=== PATIENT | male | born 1975 | race Caucasian/White ===

== ENCOUNTER 2020-09-13 14:14 | Emergency (ER) | payer OTHER, SELFPAY ==
[2020-09-13 14:19] VITALS: BP 120/83; PULSE 93; TEMP 36.5; O2SAT 98
--- NOTE | 2020-09-13 14:33 | ED.GENADUL_ITS ---
Discharge Plan Disposition Patient Disposition: HOME Condition: Stable Discharge Details Clinical Impression: Abscess Primary Care Provider: Stephanie,Local ED Provider: Ricky Underwood Home Meds and New Rx's Prescriptions: New mupirocin 2 % ointment 1 applic topical BID Qty: 15 RF: 0 Discharge Instructions Instructions: Abscess (ED) Additional Instructions: Perform chlorine soaks as we discussed. Apply topical antibiotic ointment as prescribed. Please contact your primary care physician to arrange follow-up. Return to the ER for any worsening or new concerning symptoms. Discharge Data Discharge Date/Time-TO BE ENTERED AT DEPARTURE: 09/13/20 15:01 Medical Decision Making 45-year-old male with prior history of remote MRSA, here with small local abscess with no cellulitis or systemic symptoms. Skin was anesthetized with LET. Small incision made into cholesterol and purulent fluid expressed. Usual and customary discharge instructions were reviewed with the patient. HPI General Mode of arrival: ambulatory . Date/Time Provider Initiated Documentation: 09/13/20 14:20 . Limitations to Documentation: no limitations . Information obtained by: patient . HPI Narrative: 45-year-old male with prior history of MRSA skin infection remotely, presents with concern for skin i nfection. Patient notes that a few days of a boil developing left anterior lower leg. Patient states it has developed a head. No discharge from the infection. No associated fever. Otherwise feels well. No other rash. Related Data Home Medications Medication Instructions Recorded Confirmed mupirocin 1 applic TOPICAL BID #15 g 09/13/20 Previous Rx's Medication Instructions Recorded mupirocin 1 applic TOPICAL BID #15 g 09/13/20 Allergies Allergy/AdvReac Type Severity Reaction Status Date / Time Penicillins AdvReac Unverified 09/13/20 14:25 General Stated Complaint: Cellulitis VITALIY: 4 Review of Systems Constitutional Constitutional: Denies fever(s) Integumentary/Breasts Skin/Breast: Reports as per HPI [facility] Medical History (Updated 09/13/20 @ 14:39 by Ricky Underwood MD) MRSA (methicillin resistant Staphylococcus aureus) Social History Smoking/Tobacco Use Status: Current-Occasional Smoking risk assessment performed?: Yes Alcohol Intake: never Drug use: Never Substance use type: does not use Do you feel safe at home: Yes Do you feel safe in your relationship?: Yes Exam Const General: cooperative and no acute distress HENMT Mouth: moist mucous membranes Eyes Conjunctivae: normal conjunctivae Sclera: normal sclerae Neck Neck: trachea midline and supple Resp Auscultation: clear to auscultation bilaterally, no rales, no rhonchi and no whe ezes Cardio Rate: regular rate and not tachycardic Rhythm: regular rhythm Skin Other: 2cm circular abscess with pustule left anterior lower leg Neuro General: patient alert, patient awake and tone normal Course Vital Signs Vital signs: Vital Signs Temperature 36.5 C 09/13/20 14:19 Pulse 93 H 09/13/20 14:19 Blood Pressure 120/83 09/13/20 14:19 Pulse Oximetry 98 09/13/20 14:19 Temperature 36.5 C 09/13/20 14:19 Temperature Source Oral 09/13/20 14:19 Pulse 93 H 09/13/20 14:19 Respiratory Effort 09/13/20 14:25 Blood Pressure 120/83 09/13/20 14:19 Blood Pressure Position Sitting 09/13/20 14:19 Pulse Oximetry 98 09/13/20 14:19 Oxygen Delivery Method Room Air 09/13/20 14:19 Oxygen Flow Rate 0 09/13/20 14:19 Pain Level 5 09/13/20 14:19 Procedures Abscess I/D Site: Lower Extremity Side (if applicable): Left Local Anesthetic: Other Anesthetic (topical LET) Technique: Incised with #11 Blade Amount of fluid expressed (mL): 0.5 Irrigation: Yes Packing used?: None
[2020-09-13] MEDS: Lidocaine/Epinephri/Tetracaine Topical Gel 3 ML TP (14:37)
[2020-09-13 15:00] VITALS: BP 120/83; PULSE 93; TEMP 36.5; O2SAT 98
== END 2020-09-13 15:01 | disposition home or self-care (01) ==
LOC: ER 15:05
PROVIDERS: Emergency Provider Student in an Organized Health Care Education/Training Program
DX: L02.416 Cutaneous abscess of left lower limb (principal)
CPT/HCPCS: 10060

== ENCOUNTER 2021-06-17 18:38 | Emergency (ER) | payer OTHER, SELFPAY ==
[2021-06-17 18:46] VITALS: BP 150/97; PULSE 78; TEMP 37.4; O2SAT 98
--- NOTE | 2021-06-17 18:56 | DI.CT_ITS ---
Exam(s) CT HEAD FACIAL WO EXAM: CT HEAD FACIAL WO CLINICAL HISTORY: Blunt trauma head Right orbit. TECHNIQUE: Imaging Protocol: Axial computed tomography images with coronal and sagittal reformatted images were created and reviewed COMPARISON: No exams were available for comparison FINDINGS: CT Head: Ventricles and Extra axial spaces: Normal in size and morphology for the patient's age. Hemorrhage: None. Cerebral parenchyma: Normal. Midline shift: None. Brainstem/Cerebellum: Normal. Calvarium: Normal. Visualized Paranasal sinuses/Mastoids: Clear. Soft Tissues: Unremarkable. CT Face: Facial Bones: No definite fracture is noted in facial bones. Sinuses and Mastoids: Unremarkable. Globes, extraocular muscles, optic nerves and retrobulbar fat: Normal. Upper aerodigestive tract: Normal. Mandible and bilateral temporomandibular joints: Normal. Soft tissues: Mild soft tissue swelling right infraorbital region. IMPRESSION: 1. No acute intracranial process. 2. No acute facial fracture. RADIATION DOSE DELIVERED: 1,681.49mGy.cm Total DLP DATA REPOSITORY: All CT scans at this facility are submitted to the National Radiology Data Registry (NRDR) Dose Index Registry (DIR) with the [employer] (ACR). RADIATION OPTIMIZATION: All CT scans at this facility use at least one of these dose optimization te chniques: automated exposure control; mA and/or kV adjustment per patient size (includes targeted exa ms where dose is matched to clinical indication); or iterative reconstruction.
--- NOTE | 2021-06-17 18:59 | ED.GENADUL_ITS ---
Discharge Plan Disposition Patient Disposition: HOME Condition: Stable Discharge Details Clinical Impression: Abrasion of cornea, right, Blunt force trauma, right eye Primary Care Provider: Stephanie,Local ED Provider: Jessi Blake Home Meds and New Rx's Prescriptions: No Action mupirocin 2 % ointment 1 applic topical BID Qty: 15 RF: 0 Discharge Instructions Instructions: Corneal Abrasion (ED), Head Injury (ED) Additional Instructions: Use erythromycin ointment up to 3 times daily to right eye for 3 to 5 days. Follow-up with [facility] in 3 to 5 days for further evaluation. Please take Tylenol or Ibuprofen with food every 4-6 hours as needed for pain and swelling. [facility] Address: [address] [place] [address], [place] [address] Hours: Opens 8AM Fri Follow up with primary care provider in 3-5 days. Return to ED sooner if any worsening or concerns. Increase oral fluids. Be seen sooner for any vomiting, confusion, headache not relieved by ibuprofen or Tylenol or any concerns. Referrals: [facility] [OTHER] - Medical Decision Making 46-year-old male presents to the ER chief complaint of right eye pain. 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 Patient denies loss of consciousness but became nauseous and thought he was going to pass out. He is complaining of eye pain he has a small abrasion noted to his right cheek and some contusion and swelling surrounding it. Patient states that he took an Aleve and drank a twisted tea prior to arrival. He denies any C-spine tenderness or neck pain. He is unsure of his last tetanus vaccination status. 190: Visual acuity 20/50 right eye, FINDINGS: Orbital cavity: Orbits are normal. Globes are unremarkable. Bones/joints: No acute fracture. Paranasal sinuses: Normal. No air-fluid levels. Soft tissues: Mild swelling and stranding of the right infraorbital facial facial soft tissues COMPARISON: No relevant prior studies available. FINDINGS: Brain: Normal. No hemorrhage. Unremarkable white matter. No mass effect. Cerebral ventricles: No ventriculomegaly. Paranasal sinuses: Visualized sinuses are unremarkable. No fluid levels. Mastoid air cells: Visualized mastoid air cells are well aerated. Bones/joints: Unremarkable. No acute fracture. Soft tissues: Mild swelling and stranding of the right infraorbital facial facial soft tissues. IMPRESSION: 1. No evidence of acute intracranial abnormality. 2. Mild swelling and stranding of the right infraorbital facial facial soft tissues. Eye exam performed with Lennon lamp and fluorescein see physical exam above, no foreign body visualized, there was uptake of dye noted to the inner canthus. Small multiple subconjunctival hemorrhages noted. Patient was given erythromycin ointment here in department and sent home with instructions on use. Instructed to follow-up with blending line attendant. Patient verbalized understanding. Discussed return instructions. This text was generated using rumr: turn off the lights dictation system, please disregard any oddities of phrase or misspellings. HPI General Mode of arrival: ambulatory . Date/Time Provider Initiated Documentation: 06/17/21 18:49 . Limitations to Documentation: no limitations . Information obtained by: patient and RN notes reviewed . HPI Narrative: 46-year-old male presents to the ER chief complaint of right eye pain. 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 Patient denies loss of consciousness but became nauseous and thought he was going to pass out. He is complaining of eye pain he has a small abrasion noted to his right cheek and some contusion and swelling surrounding it. Patient states that he took an Aleve and drank a twisted tea prior to arrival. He denies any C-spine tenderness or neck pain. He is unsure of his last tetanus vaccination status. Related Data Home Medications Medication Instructions Recorded Confirmed mupirocin 1 applic TOPICAL BID #15 g 09/13/20 Previous Rx's Medication Instructions Recorded mupirocin 1 applic TOPICAL BID #15 g 09/13/20 Allergies Allergy/AdvReac Type Severity Reaction Status Date / Time Penicillins AdvReac Unverified 09/13/20 14:25 General Stated Complaint: HeadInjury VITALIY: 2 Review of Systems All systems reviewed & are unremarkable except as noted in HPI and below Eyes Eyes: Reports as per HPI, Reports blurry vision, Reports change in vision, Reports irritation, Reports eye pain and Reports spots in vision Musculoskeletal Musculoskeletal: Reports as per HPI [facility] Medical History (Updated 06/17/21 @ 20:45 by Jessi Blake) MRSA (methicillin resistant Staphylococcus aureus) Social History Smoking/Tobacco Use Status: Current-Occasional Smoking risk assessment performed?: Yes Alcohol Intake: never Drug use: Never Substance use type: does not use Do you feel safe at home: Yes Do you feel safe in your relationship?: Yes Exam Narrative Exam Narrative: Constitutional: Alert and oriented x3. Appears stated age. Normal body habitus. Patient appears anxious. Head: Normocephalic, no trauma. Eyes: Pupils PERRLA, Red reflex noted, EOM's intact. See eye exam noted below. ENT: Bilateral TM's WNL, External ear normal to inspection, no hemotympanum no mastoid TTP, swelling, or erythema, Nasal turbinates WNL, no evidence of epistaxis no septal hematoma no nasal discharge. Normal dentition, Posterior pharynx WNL, no exudate. Chest: RRR, Normal S1, S2, distal pulses intact. Resp: Lungs clear to auscultation bilaterally, no wheezes, rales, or rhonchi. Musculoskeletal: Normal gait, 5/5 strength to all four extremities. Skin: Capillary refill less than 2 sec. Neurologic: Cranial nerves II-XII intact. Alert and oriented x 3. DTR's intact. Hematologic/Lymphatic: No ecchymosis, no lymphadenopathy. Eyes Visual Mendoza: normal visual mendoza by confrontation Periorbital: periorbital findings abnormal right periorbital swelling, periorbital tenderness and other (Abrasion Lower lid) Conjunctivae: conjunctival abnormality right subconjunctival hemorrhage Cornea: corneas abnormal on the right fluorescein used and abrasion linear and at the following clock position (3 Oclock); without dendrites present, with no foreign body noted and without ulcerations Pupils: PERRL EOM: EOM intact bilaterally Direct ophthalmoscopy: normal light reflex Eyes/upper lids images: 1. Corneal abrasion. Fluorescein dye uptake 2. Subconjunctival hemorrhage 3. Superficial abrasion, Surrounding contusion Course Vital Signs Vital signs: Vital Signs Temperature 37.4 C 06/17/21 18:46 Pulse 78 06/17/21 18:46 Blood Pressure 150/97 H 06/17/21 18:46 Pulse Oximetry 98 06/17/21 18:46 Temperature 37.4 C 06/17/21 18:46 Temperature Source Temporal Artery Scan 06/17/21 18:46 Pulse 78 06/17/21 18:46 Blood Pressure 150/97 H 06/17/21 18:46 Blood Pressure Position Sitting 06/17/21 18:46 Pulse Oximetry 98 06/17/21 18:46 Oxygen Delivery Method Room Air 06/17/21 18:46 Oxygen Flow Rate 0 06/17/21 18:46 Pain Level 7 06/17/21 18:46
[2021-06-17] MEDS: Balanced Salt Solution 15 ML BTL OP (19:20)
--- NOTE | 2021-06-17 20:28 | DI.VRAD_ITS ---
PROCEDURE INFORMATION: Exam: CT Head Without Contrast Exam date and time: 06/17/2021 7:27 PM Age: 46 years old Clinical indication: Other: Blunt trauma head right orbit; Other: Blunt trauma head right orbit TECHNIQUE: Imaging protocol: Computed tomography of the head without contrast. Radiation optimization: All CT scans at this facility use at least one of these dose optimization techniques: automated exposure control; mA and/or kV adjustment per patient size (includes targeted exams where dose is matched to clinical indication); or iterative reconstruction. COMPARISON: No relevant prior studies available. FINDINGS: Brain: Normal. No hemorrhage. Unremarkable white matter. No mass effect. Cerebral ventricles: No ventriculomegaly. Paranasal sinuses: Visualized sinuses are unremarkable. No fluid levels. Mastoid air cells: Visualized mastoid air cells are well aerated. Bones/joints: Unremarkable. No acute fracture. Soft tissues: Mild swelling and stranding of the right infraorbital facial facial soft tissues. IMPRESSION: 1. No evidence of acute intracranial abnormality. 2. Mild swelling and stranding of the right infraorbital facial facial soft tissues. PROCEDURE INFORMATION: Exam: CT Maxillofacial Without Contrast Exam date and time: 06/17/2021 7:27 PM Age: 46 years old Clinical indication: Other: Blunt trauma head right orbit; Other: Blunt trauma head right orbit TECHNIQUE: Imaging protocol: Computed tomography images of the face without contrast. Radiation optimization: All CT scans at this facility use at least one of these dose optimization techniques: automated exposure control; mA and/or kV adjustment per patient size (includes targeted exams where dose is matched to clinical indication); or iterative reconstruction. COMPARISON: No relevant prior studies available. FINDINGS: Orbital cavity: Orbits are normal. Globes are unremarkable. Bones/joints: No acute fracture. Paranasal sinuses: Normal. No air-fluid levels. Soft tissues: Mild swelling and stranding of the right infraorbital facial facial soft tissues. IMPRESSION: 1. No evidence of acute osseous injury. 2. Mild swelling and stranding of the right infraorbital facial facial soft tissues. Dictated and Authenticated by: Naun Diallo MD. Ordering:LIZETH Bowen MD
[2021-06-17] MEDS: Erythromycin Ophth Oint 3.5 GM TUBE OD (20:52)
== END 2021-06-17 20:48 | disposition home or self-care (01) ==
PROVIDERS: Emergency Provider Registered Nurse Emergency
DX: S05.01XA Injury of conjunctiva and corneal abrasion without foreign body, right eye, initial encounter (principal); S00.81XA Abrasion of other part of head, initial encounter; W20.8XXA Other cause of strike by thrown, projected or falling object, initial encounter; H11.31 Conjunctival hemorrhage, right eye
CPT/HCPCS: 90471; 99284; 70450; 70486

== ENCOUNTER 2025-02-14 13:59 | Outpatient (REF) | payer OTHER, SELFPAY ==
[2025-02-15 11:54] LABS: Campylobacter PCR Negative (Negative); Salmonella PCR Negative (Negative); Shiga Toxin PCR Negative (Negative); Shigella/Enteroinvasive Ecoli Negative (Negative)
== END 2025-02-14 14:00 | disposition home or self-care (01) ==
LOC: LBN 13:59
PROVIDERS: Visit Provider Physician Assistant Medical
DX: R19.5 Other fecal abnormalities (principal)
CPT/HCPCS: 87505; 87177

== ENCOUNTER 2025-03-05 17:11 | Outpatient (REF) | payer OTHER, SELFPAY ==
[2025-03-05 20:14] LABS: Abs Immature Grans 0.01 10^3/uL (0.0-0.06); Absolute Basophil Count 0.03 10^3/uL (0.0-0.2); Absolute Eosinophil Count 0.01 10^3/uL (0.0-0.7); Absolute Lymphocyte Count 1.58 10^3/uL (1.2-3.4); Absolute Neutrophil Count 3.49 10^3/uL (1.2-6.7); Basophils % 0.6 %; Eosinophils % 0.2 %; HCT 40.2 % (40.0-50.0); HGB 13.9 g/dL (13.5-17.5); Immature Grans % 0.2 %; Lymphocytes % 29.2 %; MCH 30.5 pg (27.0-33.0); MCHC 34.6 % (32.0-36.0); MCV 88 fL (80-95); MPV 12.5 fL (8.0-11.0); Monocytes % 5.5 %; Neutrophils % 64.3 %; Platelet Count 183 10^3/uL (130-400); RBC 4.55 10^6/uL (4.36-5.78); RDW 13.4 % (11.8-14.1); RDW-SD 42.6 fL; WBC 5.42 10^3/uL (4.4-10.8)
[2025-03-05 20:51] LABS: ALT 35 U/L (16-63); AST 26 U/L (15-37); Albumin 4.1 g/dL (3.4-5.0); Alkaline Phosphatase 53 U/L (46-116); Anion Gap 11.7 mmol/L (3-11); BUN 11 mg/dL (7-18); Bilirubin, Total 1.2 mg/dL (0.2-1.0); CO2 24.3 mmol/L (21.0-32.0); Calcium 8.8 mg/dL (8.5-10.1); Calculated LDL 94 mg/dL (<100); Chloride 109 mmol/L (98-107); Cholesterol 182 mg/dL (<200); Estimated GFR 92.84 (mL/min/1.73m2); Glucose 101 mg/dL (74-106); HDL Cholesterol 69 mg/dL (>or=40); Sodium 145 mmol/L (136-145); TSH 0.63 uIU/mL (0.36-3.74); Triglyceride 97 mg/dL (<150)
[2025-03-05 22:20] LABS: Hemoglobin A1C 5.3 % (<5.7)
== END 2025-03-05 17:12 | disposition home or self-care (01) ==
LOC: NCHCN 17:11
PROVIDERS: Visit Provider Family Medicine
DX: Z00.00 Encounter for general adult medical examination without abnormal findings (principal)
CPT/HCPCS: 80053; 80061; 83036; 84443; 85025

== ENCOUNTER 2025-03-13 20:05 | Outpatient (REF) | payer MEDICARE, SELFPAY ==
[2025-03-17 12:51] LABS: Chlamydia Result Negative (Negative)
[2025-03-17 12:57] LABS: Specimen Description URINE
[2025-03-17 13:01] LABS: GC Result Positive (Negative)
== END 2025-03-13 20:06 | disposition home or self-care (01) ==
LOC: NCHCN 20:05
PROVIDERS: Visit Provider Family Medicine
DX: R36.9 Urethral discharge, unspecified (principal)
CPT/HCPCS: 87491; 87591

== ENCOUNTER 2025-03-20 16:37 | Outpatient (REF) | payer MEDICARE, SELFPAY | END 2025-03-20 16:38 | disposition home or self-care (01) | LOC: NCHCN 16:37 | PROVIDERS: Visit Provider Family Medicine | DX: A06.3 Ameboma of intestine (principal) | CPT/HCPCS: 87177; 87209 ==

== ENCOUNTER 2025-04-01 16:48 | Outpatient (REF) | payer MEDICARE, SELFPAY ==
[2025-04-06 16:10] LABS: Entamoeba histolytica Antigen NOT DETECTED
== END 2025-04-01 16:49 | disposition home or self-care (01) ==
LOC: NCHCN 16:48
PROVIDERS: Visit Provider Family Medicine
DX: A06.9 Amebiasis, unspecified (principal)
CPT/HCPCS: 87339

== ENCOUNTER 2025-04-10 01:14 | Outpatient (CLI) | payer MEDICARE, SELFPAY ==
--- NOTE | 2025-04-10 | DI.US_ITS ---
Exam(s) US SCROTUM EXAM: US SCROTUM CLINICAL HISTORY: SCROTAL PAIN N50.82 PENILE INJURY LAST WEEK, BRUISING. TECHNIQUE: Scrotal ultrasound performed using grayscale, color-flow and spectral Doppler analysis. COMPARISON: No exams were available for comparison FINDINGS: Right testicle: 5.5 x 3.0 x 3.7 cm Echogenicity: Normal. Contour: Smooth. Mass: None seen. Microlithiasis: None. Hydrocele: None. Variocele: None. Hernia: No peristalsing bowel loop identified. Epididymis: There is a small 0.2 cm epididymal head cyst. Left testicle: 5.7 x 2.6 x 3.9 cm Echogenicity: Normal. Contour: Smooth. Mass: None seen. Microlithiasis: None. Hydrocele: None. Variocele: None. Hernia: No peristalsing bowel loop identified. Epididymis: Normal. DOPPLER: Color: Symmetric and uniform, no hyperemia. Other: There is an area of subcutaneous edema at the left side near the junction of the scrotum and t he base of the penis. There are 2 heterogeneous and hypoechoic areas within the edema measuring 4 cm by 1.4 cm in aggregate. They appear separate from the penile shaft. They are separate from the felicitas ticles. This area probably reflects an area of hematoma. IMPRESSION: 1. Normal appearing bilateral testicles. 2. Heterogeneous hypoechoic area corresponding to the palpable abnormality. This may represent an ar ea of hematoma. A follow-up examination in 2-4 weeks is suggested for re-evaluation. DATA REPOSITORY:
== END 2025-04-10 01:34 ==
PROVIDERS: PCP Family Medicine; Visit Provider Family Medicine
DX: N50.82 Scrotal pain (principal)
CPT/HCPCS: 76870

== ENCOUNTER → 2025-05-01 08:43 | Outpatient (BNVA) | payer MEDICARE, SELFPAY | PROVIDERS: PCP Family Medicine; Visit Provider Surgery | DX: Z12.11 Encounter for screening for malignant neoplasm of colon (principal); Z80.0 Family history of malignant neoplasm of digestive organs | CPT/HCPCS: S0285 ==

== ENCOUNTER 2025-05-16 10:37 | Day surgery (SDC) | payer OTHER, SELFPAY ==
--- NOTE | 2025-05-15 19:39 | W.PM.DSUDISC ---
Date of service: 05/16/25 Discharge Plan Disposition Patient Disposition: Home Condition: Good Discharge Details Reason For Visit: screening colonoscopy Attending Provider: Westley Michael Primary Care Provider: Antony Mclean Home Meds and New Rx's Prescriptions: Continued emtricitabine-tenofovir (TDF) 200-300 mg tablet 1 tab PO DAILY Patient Comments: TAKE 1 TABLET BY MOUTH EVERY DAY 05/14/25 Pt. states he takes this a preventative, but is currently not taking it at this time, has an RX on file. Has not tested HIV + mupirocin 2 % ointment 1 applic topical BID Qty: 15 0RF Rx Instructions: Apply to infection Discontinued polyethylene glycol 3350 17 gram/dose powder 238 g PO ONCE Qty: 238 0RF Rx Instructions: take per colonoscopy instructions bisacodyl [Dulcolax (bisacodyl)] 5 mg tablet,delayed release (DR/EC) 5 mg PO ONCE Qty: 4 0RF Rx Instructions: take per colonoscopy instructions Discharge Instructions Additional Instructions: Elizabeth, it was good seeing you today, and am glad that you are comfortable through the procedure. As you saw, aside from 1 little area of inflammation, everything else is totally normal. With no signs of cancers or polyps, this would be considered a negative screening colonoscopy. Typically, I recommend that patients who have 1 or more first-degree relatives (father mother, sister brother, children) who have colon cancer undergo colonoscopies every 5 years. For patients with second-degree relatives, I usually recommend 5-year intervals if there are 2 or more second-degree relatives. I would encourage you to keep an open dialogue with your primary care physician. Certainly, would be happy to see you again for your next screening colonoscopy. If you need anything, or have any questions at all, please do not hesitate to ask. 1. If tolerated, consume a soft, low fiber diet for 1-2 days. 2[address] Do not drive, drink alcohol, operate machinery, make critical decisions, or do activities that require coordination or balance for 24 hours. 3. Because air was put into your colon during the procedure, expelling air from your rectum (passing gas or farting) is normal. 4. You may not have a bowel movement for 1-3 days because of the colonoscopy prep. This is normal. 5. Go directly to the emergency room if you notice any of the following: Develop chills (warm to touch), or if you have a thermometer and your temperature is above 101 Difficulty breathing or difficultly swallowing Persistent vomiting Severe abdominal pain, other than gas cramps Severe chest pain Black, tarry stools Any bleeding ? exceeding one tablespoon 6. Call your physician if the site where your intravenous was started becomes red, swollen, painful, and warm to touch. 7. Your physician has reviewed your pre-procedure medications. Please continue to take those medications as previously ordered. You will be given specific information/education regarding any changes to your medications before leaving. Activity:: Activity as Tolerated Diet:: As Tolerated Discharge Orders Discharge Orders: Discharge Order (Routine); Ordered 05/15/25 Ordered By: Westley Michael DS: Diagnosis Discharge Diagnosis (1) Encounter for screening colonoscopy: Status: Acute
--- NOTE | 2025-05-15 19:43 | W.COLOREPORT ---
Date of service: 05/16/25 Time of Service: 14:50 Colonoscopy Report Date of procedure: 05/16/25 Pre-op diagnosis general: screening colonoscopy Post-op diagnosis procedure note: other (Negative screening colonoscopy) Procedure: colonoscopy Surgeon: Westley Michael Anesthesia Type: MAC Estimated blood loss (mL): 0 Pathology: none sent Complications: None Disposition: same day Indications: Elizabeth is a 50 year old man who needs a screening colonoscopy Prep: Miralax/Dulcolax Procedure Start Time: 14:28 Procedure End Time: 14:45 Retraction Time: 7 Findings: Punctate area of inflammation in the ascending colon; otherwise negative screening colonoscopy Procedure Description: After the induction of monitored anesthetic care, and with the patient in left lateral decubitus position, I began by performing an external anorectal exam.? Perineum and skin were normal, as was the anal verge.? There was no evidence of external hemorrhoids.? Next, I performed a digital rectal exam.? I did not appreciate any abnormal findings.? Next, I advanced a colonoscope into the rectal vault.? I performed retroflexion.? This appeared normal.? Using insufflation and irrigation, I then advanced the colonoscope beyond the rectal folds and into the sigmoid colon before advancing towards the cecum.? The quality of the prep was adequate.? The scope was noted to be in the cecum by identification of the ileocecal valve and appendiceal orifice.? I then began withdrawing the colonoscope using repeated irrigation as necessary for full evaluation of the colonic mucosa. 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 It looks to be healing. The transverse colon, and descending colon were normal and healthy appearing. The sigmoid colon appeared normal. Once the scope was withdrawn to the level of the rectum, great care was taken to examine portions of the rectal folds.? Finally, the scope was withdrawn and the patient was brought to the same-day surgery recovery unit as the anesthetic wore off. ?The findings and instructions were shared with the patient prior to discharge. [place] Bowel Prep [place] Bowel Prep Right Colon: 2 Left Colon: 3 Transverse Colon: 3 Total Score: 8
[2025-05-16 11:52] VITALS: BP 112/92; PULSE 96; RESP 18; TEMP 36.9; O2SAT 99
[2025-05-16] MEDS: Lactated Ringers 1,000 ML 80 ML IV (11:56)
--- NOTE | 2025-05-16 12:00 | ANES.PREOP_ITS ---
General Info Date of Service Date Performed: 05/16/25 Height: 5 ft 11 in Weight: 86.9 kg Body Mass Index (BMI): 26.7 Surgical Procedure: Operation Date: 05/16/25 08:20 Proposed Procedure Side Surgeon p Colonoscopy Westley Michael MD Meds Allergies and Home Medications Allergies Allergy/AdvReac Type Severity Reaction Status Date / Time Penicillins AdvReac Severe hallucinati Verified 05/16/25 11:52 ons Home Medication ?Medication ?Instructions ?Recorded mupirocin 2 % topical ointment 1 applic topical BID #1 5 grams 09/13/20 emtricitabine 200 mg-tenofovir 1 tab PO DAILY 05/14/25 disoproxil fumarate 300 mg tablet Current Visit Medications: Current Medications Generic Name Dose Route Start Last Admin Trade Name Freq PRN Reason Stop Dose Admin Ringer's Solution 1,000 mls @ 80 mls/hr 05/16/25 06:00 05/16/25 11:56 IV 05/16/25 23:59 80 mls/hr INFUSION JAZ Administration IV Miscellaneous Supplies 1 each 05/16/25 06:00 Iv Access IV 05/16/25 23:59 DIRECTED JAZ Ondansetron HCl 4 mg 05/15/25 19:44 Ondansetron 4 Mg/2 Ml Vial IVP 06/14/25 19:43 Q4H PRN PRN Nausea / Vomiting Sodium Chloride 0 ml 05/16/25 06:00 Normal Saline Flush 10 Ml Syr IV 05/16/25 23:59 PRN PRN Sodium Chloride 0 ml 05/16/25 06:00 Normal Saline 10 Ml Vial IJ 05/16/25 23:59 DIRECTED PRN Sterile Water 0 ml 05/16/25 06:00 Water,Injection,Sterile 10 Ml Vial IJ 05/16/25 23:59 DIRECTED PRN PFSH Active Problems Active Problems: Problem Status Onset Code Encounter for screening colonoscopy Acute Z12.11 Loss of weight Acute R63.4 Itchy anus Acute L29.0 Alternating constipation and diarrhea Acute R19.8 Abnormal feces Acute R19.5 Blunt force trauma, right eye Acute S05.8X1A Abrasion of cornea, right Acute S05.01XA Medical History Medical History 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 states he was told this by Dr. Michael. MRSA (methicillin resistant Staphylococcus aureus) Surgical History Surgical History History of tonsillectomy and adenoidectomy Tobacco Smoking/Tobacco Use Status: Current-Occasional Tobacco Type: e-cigarettes Passive smoking exposure: Yes Alcohol Alcohol Intake: current Alcohol intake frequency: 0-2 drinks per day Alcohol t ype: beer Substance Use Substance use: Never Substance use type: does not use Vital Signs and Lab Results Vital Signs Most Recent Vital Signs in EMR: Most Recent Vital Signs Temp Pulse Resp BP Pulse Ox 36.9 C 96 H 18 112/92 H 99 05/16/25 11:52 05/16/25 11:52 05/16/25 11:52 05/16/25 11:52 05/16/25 11:52 Anesthesia Assessment and Plan Anesthesia History Personal History: Other Family History: No Family History of Anesthesia Complications Exercise Tolerance Exercise Tolerance: Metabolic Equivalents>4 Cardiac & Pulmonary Exam Cardiac Exam: Normal S1/S2 Heart Sounds Pulmonary Exam: Clear Bilateral Breath Sounds Implantable Cardiac Device Does patient have a Pacemaker or an ICD?: No Airway Exam Known Difficult Airway: No Mallampati Class: 3 Mouth Opening: Narrow (< 3cm) Thyromental Distance: Less than 3 cm Neck Range of Motion: Full ROM Neck Circumference: Normal Teeth Condition: Generalized Poor Dentition (multiple missing front teeth. ) ASA Classification ASA Score: ASA 2 Emergency Case?: No NPO Status NPO Status: NPO Clears >2 hours, Solids >8 hours Anesthesia Plan Resuscitation Status: Full Code Anesthesia Technique: General Anesthesia Airway Planned: Natural Airway Monitors Used: Standard Monitors Preoperative Comments:: 50 yo male for colo. Sig PMHx: occ e-cig, occ EtOh. Denies major. Denies GERD. EXTREMLY nervous. He is debating no going through with procedure. It was expressed that he can always walk away and not have the procedure done today, we will not make him stay, it is his choice.
[2025-05-16 12:22] VITALS: BMI 26.7
[2025-05-16 14:48] VITALS: BP 118/94; PULSE 82; RESP 16; TEMP 36.2; O2SAT 100
--- NOTE | 2025-05-16 15:20 | W.ANESPOSTOP ---
Postoperative Evaluation Date, Time and Location Date Performed: 05/16/25 Time Performed: 15:20 Patient Location: Day Surgery Unit Vital Signs Most Recent Imported Vital Signs: Most Recent Vital Signs Temp Pulse Resp BP Pulse Ox 36.9 C 96 H 18 112/92 H 99 05/16/25 11:52 05/16/25 11:52 05/16/25 11:52 05/16/25 11:52 05/16/25 11:52 Pain Score Most Recent Pain Score: Most Recent Pain Score Pain Level 0 05/16/25 11:52 Assessment Mental Status: Awake (Alert & Oriented to Patient Baseline) Airway and Respiratory Function: Patent airway with normal (patient baseline) respiratory exam Cardiovascular Function: Hemodynamically Stable Hydration Status: Adequately Hydrated Nausea & Vomiting: No Nausea or Vomiting Pain: Pt. Denies Any Pain Peripheral Nerve Block: Patient did not receive a nerve block
== END 2025-05-16 15:15 | disposition home or self-care (01) ==
LOC: SUR 10:38
PROVIDERS: PCP Family Medicine; Visit Provider Surgery
PROC: 0DJD8ZZ Inspection of Lower Intestinal Tract, Via Natural or Artificial Opening Endoscopic (ICD-10-PCS; CPT 45378; principal; 2025-05-16 08:15)
DX: Z12.11 Encounter for screening for malignant neoplasm of colon (principal)
CPT/HCPCS: 45378; J1885; J2704

== ENCOUNTER 2025-07-24 11:35 | Outpatient (REF) | payer OTHER, SELFPAY ==
[2025-07-24 15:48] LABS: HCT 45.3 % (40.0-50.0); HGB 15.2 g/dL (13.5-17.5); MCH 30.7 pg (27.0-33.0); MCHC 33.6 % (32.0-36.0); MCV 92 fL (80-95); MPV 12.7 fL (8.0-11.0); Platelet Count 158 10^3/uL (130-400); RBC 4.95 10^6/uL (4.36-5.78); RDW 12.8 % (11.8-14.1); RDW-SD 42.4 fL; WBC 5.69 10^3/uL (4.4-10.8)
[2025-07-24 16:02] LABS: ALT 25 U/L (16-63); AST 27 U/L (15-37); Albumin 4.2 g/dL (3.4-5.0); Alkaline Phosphatase 43 U/L (46-116); Anion Gap 9.1 mmol/L (3-11); BUN 15 mg/dL (7-18); Bilirubin, Total 1.5 mg/dL (0.2-1.0); CO2 24.9 mmol/L (21.0-32.0); Calcium 8.9 mg/dL (8.5-10.1); Chloride 103 mmol/L (98-107); Estimated GFR 92.26 (mL/min/1.73m2); Glucose 119 mg/dL (74-106); Potassium 4.8 mmol/L (3.5-5.1); Sodium 137 mmol/L (136-145); Total Protein 7.4 g/dL (6.4-8.2)
[2025-07-24 23:11] LABS: PSA, Screening 0.7 ng/mL (<=2.5)
[2025-07-25 09:41] LABS: HIV-1/2 Ag & Ab Screen Negative (Negative)
[2025-07-25 12:34] LABS: Chlamydia Result Negative (Negative); GC Result Negative (Negative)
[2025-07-25 22:24] LABS: Source Urine; Trich. vaginalis amplified RNA Negative (Negative)
== END 2025-07-24 11:36 | disposition home or self-care (01) ==
LOC: NCHCN 11:35
PROVIDERS: PCP Physician Assistant; Visit Provider Physician Assistant
DX: Z12.5 Encounter for screening for malignant neoplasm of prostate (principal); A06.9 Amebiasis, unspecified; Z11.3 Encounter for screening for infections with a predominantly sexual mode of transmission
CPT/HCPCS: 80053; 84153; 85027; 87389; 87491; 87591; 87661

== ENCOUNTER 2025-09-26 09:51 | Outpatient (REF) | payer OTHER, SELFPAY ==
[2025-09-29 11:42] LABS: Chlamydia Result Negative (Negative); GC Result Negative (Negative)
== END 2025-09-26 09:52 | disposition home or self-care (01) ==
LOC: NCHCN 09:51
PROVIDERS: PCP Physician Assistant; Visit Provider Physician Assistant
DX: R10.A3 Flank pain, bilateral (principal)
CPT/HCPCS: 87491; 87591

== ENCOUNTER 2025-10-07 14:12 | Outpatient (REF) | payer OTHER, SELFPAY ==
[2025-10-08 20:03] LABS: Campylobacter PCR Negative (Negative); Shiga Toxin PCR Negative (Negative); Shigella/Enteroinvasive Ecoli Positive (Negative)
== END 2025-10-07 14:13 | disposition home or self-care (01) ==
LOC: NCHCN 14:12
PROVIDERS: PCP Physician Assistant; Visit Provider Physician Assistant
DX: R19.7 Diarrhea, unspecified (principal)
CPT/HCPCS: 87015; 87177; 87209; 87269; 87272; 87505; 82270